=== PATIENT | female | born 1990 | race Two or more races ===

== ENCOUNTER → 2020-08-29 | Outpatient (CLI) | payer OTHER ==
[2020-08-29 16:54] LABS: BASO % 0.5 % (0.0-1.0); EOS # 0.1 10^3/uL (0.0-0.5); EOS % 1.4 % (0.0-3.0); HEMATOCRIT 41.3 % (36.0-47.0); HEMOGLOBIN 12.7 g/dl (12.0-15.5); LYMPH # 2.1 10^3/uL (1.5-5.0); MEAN CORPUSCULAR HEMOGLOBIN 24.2 pg (27.0-33.0); MEAN CORPUSCULAR HGB CONC 30.8 g/dl (32.0-36.5); MEAN CORPUSCULAR VOLUME 78.8 fl (80.0-96.0); MONO # 0.5 10^3/uL (0.0-0.8); MONO % 7.9 % (2.0-8.0); NEUTROPHILS # 3.1 10^3/uL (1.5-8.5); PLATELET COUNT, AUTOMATED 341 10^3/uL (150-450); RED BLOOD COUNT 5.24 10^6/uL (4.00-5.40); WHITE BLOOD COUNT 5.8 10^3/uL (4.0-10.0)
[2020-08-29 17:23] LABS: ALBUMIN 3.7 GM/DL (3.2-5.2); ALT/SGPT 27 U/L (12-78); BILIRUBIN,TOTAL 0.4 MG/DL (0.2-1.0); BLOOD UREA NITROGEN 9 MG/DL (7-18); CALCIUM LEVEL 9.4 MG/DL (8.5-10.1); CARBON DIOXIDE LEVEL 26 MEQ/L (21-32); CHLORIDE LEVEL 105 MEQ/L (98-107); CHOLESTEROL LEVEL 249 MG/DL (<200); CHOLESTEROL RISK RATIO 3.716 (<5); CREATININE FOR GFR 0.69 MG/DL (0.55-1.30); GLOMERULAR FILTRATION RATE > 60.0 (>60); GLUCOSE, FASTING 72 MG/DL (70-100); HDL CHOLESTEROL 67 MG/DL (>40); LDL CHOLESTEROL 160 MG/DL (<100); NON-HDL-C 182 MG/DL; SODIUM LEVEL 140 MEQ/L (136-145); TOTAL PROTEIN 7.4 GM/DL (6.4-8.2); TRIGLYCERIDES LEVEL 108 MG/DL (<150)
== END ==
LOC: M WUC 15:22
PROVIDERS: ATTEND Family Medicine
DX: R63.5 Abnormal weight gain (principal); E66.01 Morbid (severe) obesity due to excess calories

== ENCOUNTER → 2021-01-03 | Outpatient (CLI) | payer OTHER ==
--- NOTE | 2021-01-03 18:01 | REP ---
INDICATION: MASTODYNIA OF LEFT BREAST. COMPARISON: None TECHNIQUE: Real-time sonographic evaluation of left breast performed. FINDINGS: No cystic or solid nodule is seen in any portion of the left breast. IMPRESSION: BIRADS/ACR category 1, negative ultrasound left breast. RECOMMENDATION: Clinical correlation and follow-up recommended. <Electronically signed by Jimmy Almeida > 01/03/21 [id number]
== END ==
LOC: M WHC 14:57
PROVIDERS: ATTEND Obstetrics & Gynecology
DX: N64.4 Mastodynia (principal)

== ENCOUNTER 2021-04-15 19:18 | Emergency (ER) | payer OTHER ==
[~2021-04-15] VITALS: Ht 165.1 cm; Wt 114.5 kg
[2021-04-15] MEDS ORDERED: ONDA4TAB6 (19:32)
[2021-04-15] MEDS ORDERED: NS 1,000 ML IV ONE ×2 (20:05)
[2021-04-15 21:02] LABS: BASO % 0.3 % (0.0-1.0); EOS # 0.1 10^3/uL (0.0-0.5); EOS % 0.9 % (0.0-3.0); HEMATOCRIT 38.7 % (36.0-47.0); HEMOGLOBIN 12.2 g/dl (12.0-15.5); LYMPH # 2.4 10^3/uL (1.5-5.0); LYMPH % 27.3 % (24.0-44.0); MEAN CORPUSCULAR HEMOGLOBIN 24.5 pg (27.0-33.0); MEAN CORPUSCULAR HGB CONC 31.5 g/dl (32.0-36.5); MEAN CORPUSCULAR VOLUME 77.9 fl (80.0-96.0); MONO # 0.7 10^3/uL (0.0-0.8); MONO % 7.9 % (2.0-8.0); NEUTROPHILS # 5.7 10^3/uL (1.5-8.5); NEUTROPHILS % 63.4 % (36.0-66.0); PLATELET COUNT, AUTOMATED 339 10^3/uL (150-450); RED BLOOD COUNT 4.97 10^6/uL (4.00-5.40)
[2021-04-15 21:42] LABS: ALBUMIN 3.3 GM/DL (3.2-5.2); ALT/SGPT 65 U/L (12-78); BILIRUBIN,TOTAL 0.2 MG/DL (0.2-1.0); BLOOD UREA NITROGEN 5 MG/DL (7-18); CALCIUM LEVEL 9.1 MG/DL (8.5-10.1); CARBON DIOXIDE LEVEL 23 MEQ/L (21-32); CHLORIDE LEVEL 105 MEQ/L (98-107); CREATININE FOR GFR 0.71 MG/DL (0.55-1.30); GLOMERULAR FILTRATION RATE > 60.0 (>60); GLUCOSE, FASTING 86 MG/DL (70-100); MAGNESIUM LEVEL 2.2 MG/DL (1.8-2.4); POTASSIUM SERUM 4.4 MEQ/L (3.5-5.1); SODIUM LEVEL 137 MEQ/L (136-145); TOTAL PROTEIN 6.7 GM/DL (6.4-8.2)
[2021-04-15] MEDS ORDERED: METOCLOPRAMIDE INJ 10MG/2ML VIAL (J2765 PER 1) IV ONE (22:10)
[2021-04-15 22:30] VITALS: BP 122/66
[2021-04-15] MEDS ORDERED: REGL5TAB2 PO (23:12)
== END 2021-04-15 23:25 | disposition home or self-care (01) ==
LOC: M ED 19:18
DX: O21.1 Hyperemesis gravidarum with metabolic disturbance (principal); Z3A.08 8 weeks gestation of pregnancy
CPT/HCPCS: 80053; 81001; 83605; 83735; 85025; 96361; 96374; 99284; J2765

== ENCOUNTER 2021-04-27 03:05 | Emergency (ER) | payer OTHER ==
[~2021-04-27] VITALS: Ht 165.1 cm; Wt 112.1 kg
[2021-04-27 03:05] VITALS: BP 139/63
[~2021-04-27 03:05] MED LIST: ONDA4TAB6; REGL5TAB2 PO
[2021-04-27] MEDS ORDERED: ONDANSETRON 4MG/2ML VIAL IV ONE (05:05)
[2021-04-27] MEDS ORDERED: NS 500 ML IV ONE (05:05)
[2021-04-27] MEDS ORDERED: DICL10TA PO (05:29)
== END 2021-04-27 06:13 | disposition home or self-care (01) ==
LOC: M ED 03:05
DX: O21.8 Other vomiting complicating pregnancy (principal); Z3A.00 Weeks of gestation of pregnancy not specified
CPT/HCPCS: 80047; 96361; 96374; 99283; J2405

== ENCOUNTER → 2021-05-02 | Outpatient (CLI) | payer OTHER ==
[~2021-05-02] MED LIST changes: +DICL10TA PO
[2021-05-02 13:28] LABS: BASO % 0.6 % (0.0-1.0); EOS % 0.6 % (0.0-3.0); HEMATOCRIT 39.2 % (36.0-47.0); HEMOGLOBIN 12.4 g/dl (12.0-15.5); LYMPH # 1.9 10^3/uL (1.5-5.0); LYMPH % 26.2 % (24.0-44.0); MEAN CORPUSCULAR HEMOGLOBIN 24.8 pg (27.0-33.0); MEAN CORPUSCULAR HGB CONC 31.6 g/dl (32.0-36.5); MEAN CORPUSCULAR VOLUME 78.2 fl (80.0-96.0); MONO # 0.3 10^3/uL (0.0-0.8); MONO % 4.8 % (2.0-8.0); NEUTROPHILS # 4.8 10^3/uL (1.5-8.5); NEUTROPHILS % 67.4 % (36.0-66.0); PLATELET COUNT, AUTOMATED 350 10^3/uL (150-450); RED BLOOD COUNT 5.01 10^6/uL (4.00-5.40); WHITE BLOOD COUNT 7.1 10^3/uL (4.0-10.0)
[2021-05-02 14:36] LABS: HEPATITIS C VIRUS ABY INDEX 0.2 INDEX (<0.8); HIV 1&2 SCREEN CENTAUR NEGATIVE (NEGATIVE)
== END ==
LOC: M PLALAB 10:28
PROVIDERS: ATTEND Obstetrics & Gynecology
DX: Z34.81 Encounter for supervision of other normal pregnancy, first trimester (principal); Z3A.08 8 weeks gestation of pregnancy

== ENCOUNTER → 2021-05-15 | Outpatient (REF) | payer OTHER ==
[2021-05-15 14:57] LABS: GC DNA AMPLIFICATION NEGATIVE (NEGATIVE)
== END ==
LOC: M SFHCWAGY 12:46
PROVIDERS: ATTEND Obstetrics & Gynecology
DX: Z34.81 Encounter for supervision of other normal pregnancy, first trimester (principal)

== ENCOUNTER → 2021-06-14 | Outpatient (CLI) | payer OTHER | LOC: M WHC 14:17 | PROVIDERS: ATTEND Obstetrics & Gynecology | DX: Z36.89 Encounter for other specified antenatal screening (principal); Z3A.17 17 weeks gestation of pregnancy; Z53.8 Procedure and treatment not carried out for other reasons ==

== ENCOUNTER → 2021-07-12 | Outpatient (CLI) | payer OTHER | LOC: M WHC 14:31 | PROVIDERS: ATTEND Obstetrics & Gynecology | DX: Z36.89 Encounter for other specified antenatal screening (principal); Z3A.17 17 weeks gestation of pregnancy ==

== ENCOUNTER → 2021-08-07 | Outpatient (CLI) | payer OTHER ==
[2021-08-07 13:37] LABS: HEMATOCRIT 35.9 % (36.0-47.0); HEMOGLOBIN 11.5 g/dl (12.0-15.5); PLATELET COUNT, AUTOMATED 302 10^3/uL (150-450); RED BLOOD COUNT 4.43 10^6/uL (4.00-5.40); WHITE BLOOD COUNT 7.3 10^3/uL (4.0-10.0)
== END ==
LOC: M PLALAB 09:14
PROVIDERS: ATTEND Specialist
DX: Z34.82 Encounter for supervision of other normal pregnancy, second trimester (principal)

== ENCOUNTER → 2021-08-09 | Outpatient (CLI) | payer OTHER | LOC: M WHC 14:34 | PROVIDERS: ATTEND Specialist | DX: Z34.82 Encounter for supervision of other normal pregnancy, second trimester (principal) ==

== ENCOUNTER → 2021-08-18 | Outpatient (REF) | payer OTHER ==
[2021-08-18 19:03] LABS: GC DNA AMPLIFICATION NEGATIVE (NEGATIVE)
== END ==
LOC: M SMT 16:46
PROVIDERS: ATTEND Specialist
DX: Z34.82 Encounter for supervision of other normal pregnancy, second trimester (principal)

== ENCOUNTER → 2021-09-04 | Outpatient (CLI) | payer OTHER | LOC: M WHC 14:09 | PROVIDERS: ATTEND Advanced Practice Midwife | DX: Z36.2 Encounter for other antenatal screening follow-up (principal); Z3A.29 29 weeks gestation of pregnancy ==

== ENCOUNTER → 2021-10-23 | Outpatient (REF) | payer OTHER | LOC: M SFHCWAGY 17:02 | PROVIDERS: ATTEND Obstetrics & Gynecology | DX: Z34.83 Encounter for supervision of other normal pregnancy, third trimester (principal) ==

== ENCOUNTER → 2021-10-23 | Outpatient (CLI) | payer OTHER | LOC: M WHC 13:08 | PROVIDERS: ATTEND Obstetrics & Gynecology | DX: Z87.59 Personal history of other complications of pregnancy, childbirth and the puerperium (principal); Z3A.36 36 weeks gestation of pregnancy ==

== ENCOUNTER 2021-11-04 01:12 | Inpatient (IN) | payer OTHER ==
[2021-11-04] VITALS (8 sets, daily range): BP systolic 104–135; BP diastolic 54–72
[~2021-11-04] VITALS: Ht 165.1 cm; Wt 92.5 kg
[2021-11-04] MEDS ORDERED: LR 1,000 ML IV ONE (03:25)
[2021-11-04] MEDS ORDERED: OXYTOCIN INJ 10 UNITS/ML VIAL (J2590) As Ordered ONE (03:54)
[2021-11-04] MEDS ORDERED: CARBOPROST TROMETHAMINE 250 MCG/ML AMP IM PRN (04:10)
[2021-11-04] MEDS ORDERED: OXYTOCIN INJ 10 UNITS/ML VIAL (J2590) IM PRN (04:10)
[2021-11-04] MEDS ORDERED: METHYLERGONOVINE MALEATE 0.2 MG/ML VIAL (J2210) IM PRN (04:10)
[2021-11-04 04:26] LABS: HEMATOCRIT 36.3 % (36.0-47.0); HEMOGLOBIN 11.6 g/dl (12.0-15.5); MEAN CORPUSCULAR HEMOGLOBIN 24.1 pg (27.0-33.0); MEAN CORPUSCULAR VOLUME 75.5 fl (80.0-96.0); PLATELET COUNT, AUTOMATED 325 10^3/uL (150-450); RED BLOOD COUNT 4.81 10^6/uL (4.00-5.40); WHITE BLOOD COUNT 8.5 10^3/uL (4.0-10.0)
[2021-11-04] MEDS ORDERED: RHOGAM 300 MCG (1500 IU) INJ (J2790) IM SCH (04:40)
[2021-11-04] MEDS ORDERED: DOCUSATE SODIUM 100MG CAPSULE PO PRN (04:40)
[2021-11-04] MEDS ORDERED: IBUPROFEN 600MG TAB PO PRN (04:40)
[2021-11-04] MEDS ORDERED: DIBUCAINE 1% OINTMENT 30GM TOP PRN (04:40)
[2021-11-04] MEDS ORDERED: ACETAMINOPHEN TAB 650MG DOSE (2X325MG) PO PRN (04:40)
[2021-11-04] MEDS: ACETAMINOPHEN 500 MG TAB PO PRN ×2 (04:56→19:08)
[2021-11-04] MEDS: PRENATAL VITAMINS CHEWABLE TABLET PO SCH (10:13)
[2021-11-05] MEDS: IBUPROFEN 800 MG TAB PO PRN ×2 (00:46→16:49)
[2021-11-05 06:00] VITALS: BP 113/56
[2021-11-05] MEDS: PRENATAL VITAMINS CHEWABLE TABLET PO SCH (08:47)
[2021-11-06] MEDS ORDERED: MEASLES,MUMPS,RUBELLA VACCINE INJ (MMR-II) (90707) SC.IMMUN ONE (09:00)
== END 2021-11-05 17:50 | disposition home or self-care (01) | DRG 807 ==
LOC: M LDO 01:12 → M LDI 03:27 → M OBS 06:21
PROVIDERS: ADMIT Obstetrics & Gynecology; ATTEND Obstetrics & Gynecology
PROC: 10E0XZZ Delivery of Products of Conception, External Approach (ICD-10-PCS; principal; 2021-11-04)
DX: O62.3 Precipitate labor (principal); Z37.0 Single live birth; F32.A Depression, unspecified; F41.9 Anxiety disorder, unspecified; Z88.0 Allergy status to penicillin; Z79.899 Other long term (current) drug therapy; O99.344 Other mental disorders complicating childbirth; Z3A.37 37 weeks gestation of pregnancy

== ENCOUNTER → 2022-01-14 | Outpatient (CLI) | payer OTHER ==
[~2022-01-14] MED LIST changes: +FLUO20CA22 PO; +PRAZ1CAP PO; +XANA0.5T PO
== END ==
LOC: M LABSMTC 09:18
PROVIDERS: ATTEND Anesthesiology
DX: Z01.818 Encounter for other preprocedural examination (principal); Z11.52 Encounter for screening for COVID-19

== ENCOUNTER 2022-01-19 07:42 | Day surgery (SDC) | payer OTHER ==
[~2022-01-19] VITALS: Ht 165.1 cm; Wt 110.2 kg
[~2022-01-19 07:42] MED LIST changes: +LIDOCAINE 2% 100MG/5ML SDV (FOR ANES.) As Ordered ONE
[2022-01-19] MEDS ORDERED: LIDOCAINE 1% SDV 5ML VIAL SC PRN (07:55)
[2022-01-19] MEDS ORDERED: LR 1,000 ML IV SCH ×2 (07:55→10:20)
[2022-01-19 08:09] LABS: HEMATOCRIT 41.1 % (36.0-47.0); HEMOGLOBIN 12.3 g/dl (12.0-15.5); MEAN CORPUSCULAR HEMOGLOBIN 23.9 pg (27.0-33.0); MEAN CORPUSCULAR HGB CONC 29.9 g/dl (32.0-36.5); MEAN CORPUSCULAR VOLUME 79.8 fl (80.0-96.0); PLATELET COUNT, AUTOMATED 378 10^3/uL (150-450); RED BLOOD COUNT 5.15 10^6/uL (4.00-5.40); WHITE BLOOD COUNT 5.5 10^3/uL (4.0-10.0)
[2022-01-19] MEDS ORDERED: ROCURONIUM BROMIDE 50 MG/5 ML VIAL As Ordered ONE (08:11)
[2022-01-19] MEDS ORDERED: fentaNYL 100 MCG/2 ML INJECTION As Ordered ONE ×2 (08:11→10:28)
[2022-01-19] MEDS ORDERED: propofoL 200 MG/20 ML VIAL As Ordered ONE ×3 (08:11→10:02)
[2022-01-19] MEDS ORDERED: ONDANSETRON 4MG 2ML VIAL As Ordered ONE (08:12)
[2022-01-19] MEDS ORDERED: MIDAZOLAM INJ 2MG/2ML VIAL (J2250 PER 1MG) As Ordered ONE (08:12)
[2022-01-19] MEDS ORDERED: SUGAMMADEX SODIUM 500 MG/5 ML VIAL (BRIDION) As Ordered ONE (08:27)
[2022-01-19] MEDS ORDERED: KETOROLAC 60MG 2ML VIAL As Ordered ONE (08:27)
[2022-01-19] MEDS ORDERED: ACETAMINOPHEN 1000MG 100ML IV BAG As Ordered ONE (08:35)
[2022-01-19] MEDS ORDERED: METOCLOPRAMIDE INJ 10MG/2ML VIAL As Ordered ONE (08:44)
[2022-01-19] MEDS ORDERED: BUPIVACAINE HCL 0.25% 10ML VIAL As Ordered ONE ×2 (08:56→09:33)
[2022-01-19] MEDS ORDERED: LEVONORGESTREL 52MG (MIRENA) IUD As Ordered ONE (08:56)
[2022-01-19] MEDS ORDERED: oxyCODONE 5MG TAB PO PRN (10:20)
[2022-01-19] MEDS ORDERED: fentaNYL 100 MCG/2 ML INJECTION IV PRN (10:20)
[2022-01-19] MEDS ORDERED: ONDANSETRON 4MG 2ML VIAL IV PRN ×2 (10:20→11:15)
[2022-01-19 11:14] VITALS: BP 137/64
[2022-01-19] MEDS ORDERED: HYDROMORPHONE HCL 0.5 MG/ 0.5 ML SYRINGE (J1170 PER 1) IV PRN (11:15)
== END 2022-01-19 11:49 | disposition home or self-care (01) ==
LOC: M SDC 07:42
PROVIDERS: ATTEND Obstetrics & Gynecology
DX: N93.9 Abnormal uterine and vaginal bleeding, unspecified (principal); Z30.2 Encounter for sterilization; F43.10 Post-traumatic stress disorder, unspecified; G43.909 Migraine, unspecified, not intractable, without status migrainosus; F32.A Depression, unspecified; F41.9 Anxiety disorder, unspecified; Z88.0 Allergy status to penicillin; Z79.899 Other long term (current) drug therapy
CPT/HCPCS: 36415; 58300; 58661; 81025; 85027; 86850; 86900; 86901; 88302; J0131; J1100; J1885; J2250; J2405; J2765; J3010; J7298

== ENCOUNTER → 2022-02-25 | Outpatient (CLI) | payer OTHER ==
[~2022-02-25] MED LIST changes: -LIDOCAINE 2% 100MG/5ML SDV (FOR ANES.) As Ordered ONE; +mirena
== END ==
LOC: M LABSMTC 10:38
PROVIDERS: ATTEND Anesthesiology
DX: Z01.812 Encounter for preprocedural laboratory examination (principal); Z11.52 Encounter for screening for COVID-19

== ENCOUNTER 2022-03-02 06:04 | Day surgery (SDC) | payer OTHER ==
[~2022-03-02] VITALS: Ht 165.1 cm; Wt 110.4 kg
[2022-03-02] MEDS ORDERED: AMBI10TA PO (06:42)
[2022-03-02] MEDS ORDERED: LR 1,000 ML IV SCH ×2 (06:45→08:15)
[2022-03-02] MEDS ORDERED: ONDANSETRON 4MG 2ML VIAL As Ordered ONE (07:45)
[2022-03-02] MEDS ORDERED: fentaNYL 100 MCG/2 ML INJECTION As Ordered ONE (07:45)
[2022-03-02] MEDS ORDERED: MIDAZOLAM INJ 2MG/2ML VIAL As Ordered ONE (07:45)
[2022-03-02] MEDS ORDERED: LIDOCAINE 2% 100MG/5ML SDV (FOR ANES.) As Ordered ONE (07:45)
[2022-03-02] MEDS ORDERED: propofoL 200 MG/20 ML VIAL As Ordered ONE (07:45)
[2022-03-02] MEDS ORDERED: LIDOCAINE 1% SDV 30ML VIAL As Ordered ONE (07:51)
[2022-03-02] MEDS ORDERED: KETOROLAC 60MG 2ML VIAL As Ordered ONE (08:02)
[2022-03-02] MEDS ORDERED: fentaNYL 100 MCG/2 ML INJECTION IV PRN (08:15)
[2022-03-02] MEDS ORDERED: MEPERIDINE INJ 25 MG/ML VIAL IV PRN (08:15)
[2022-03-02] MEDS ORDERED: HYDROMORPHONE HCL 0.5 MG/ 0.5 ML SYRINGE IV PRN ×2 (08:15)
[2022-03-02] MEDS ORDERED: ONDANSETRON 4MG 2ML VIAL IV PRN (08:15)
[2022-03-02] MEDS ORDERED: NORCO, ANEXSIA 5/325MG TABLET (HYDROcodone/ACETAMINOPHEN) PO PRN (08:15)
[2022-03-02 09:00] VITALS: BP 132/58
== END 2022-03-02 09:40 | disposition home or self-care (01) ==
LOC: M SDC 06:04
PROVIDERS: ATTEND Surgery
DX: S90.55 Superficial foreign body of ankle (principal); Z18.9 Retained foreign body fragments, unspecified material; X93.XXXS Assault by handgun discharge, sequela; K21.9 Gastro-esophageal reflux disease without esophagitis; F41.9 Anxiety disorder, unspecified; F32.A Depression, unspecified; F43.10 Post-traumatic stress disorder, unspecified; Z88.0 Allergy status to penicillin; Z91.018 Allergy to other foods; Z79.899 Other long term (current) drug therapy
CPT/HCPCS: 10120; 81025; 88300; J1100; J2405